=== PATIENT | male | born 1995 | race Caucasian/White ===

== ENCOUNTER 2019-06-24 05:10 | Emergency (ER) | payer OTHER ==
[~2019-06-24] VITALS: Ht 162.6 cm; Wt 65.8 kg
[2019-06-24] MEDS ORDERED: PROAIR HFA8.5 GM INH (05:17)
[2019-06-24] MEDS ORDERED: ADVAIR 100-501 EACH INH (05:17)
[2019-06-24] MEDS ORDERED: VISTARIL 25 MG25 M1 PO (06:04)
[2019-06-24 06:22] VITALS: BP 140/75
--- NOTE | 2019-06-24 10:43 | EKG ---
[place] [address] ELECTROCARDIOGRAM REPORT Name: GISELLA BETANCOURT JR Room: [facility]#: [id number] Admission: 06/24/19 Attend Phys: Discharge: 06/24/19 Date of : 89 Date of Service: 06/24/19511 Report #: [id number] THIS REPORT FOR: //name// [facility] ED Test Date: 2019-06-24 Test Time: 05:12:00 Pat Name: GISELLA BETANCOURT Department: Room: Gender: Recruitment Intern: [place] : 1995 Requested By: Gloria Valencia Order Number: [id number] Lexi MD: Jacob Desir Measurements Intervals [place] Rate: 114 P: 80 ME: 139 QRS: 72 QRSD: 90 T: 19 QT: 325 QTc: 448 Interpretive Statements Sinus tachycardia No previous ECG available for comparison Electronically Signed On 06-24-2019 10:42:15 CDT by Jacob Desir [email or web address] <ELECTRONICALLY SIGNED> By: Jacob Desir MD, [facility] 06/24/19 1042 1 Jacob Desir MD, FACC /EPI
== END 2019-06-24 06:22 | disposition home or self-care (01) ==
LOC: M.ERS 05:10
DX: F41.9 Anxiety disorder, unspecified (principal); Z91.010 Allergy to peanuts